=== PATIENT | female | born 1965 | race Caucasian/White ===

== ENCOUNTER 2016-04-04 11:26 | Emergency (ER) | payer BC, OTHER ==
[2016-04-04] MEDS ORDERED: OPTIRAY 350 100 ML VIAL HMH IV ONE (11:27)
[2016-04-04] MEDS ORDERED: ONDANSETRON 4 MG VIAL ONE (12:18)
[2016-04-04] MEDS ORDERED: KETOROLAC 30 MG/ML VIAL ONE (12:18)
[2016-04-04] MEDS ORDERED: SODIUM CHLORIDE 0.9% 1,000 ML ONE (12:19)
[2016-04-04] MEDS ORDERED: CEFTRIAXONE 1 GM VIAL ONE (14:10)
[2016-04-04] MEDS ORDERED: SODIUM CHLORIDE 0.9% 100 ML IV ONE (14:12)
== END 2016-04-04 17:39 | disposition home or self-care (01) ==
LOC: ER 11:26
CPT/HCPCS: 36415; 74177; 80053; 81001; 83690; 84703; 85025; 87088; 87491; 87591; 87800; 96361; 96365; 96375